=== PATIENT | female | born 1990 | race Caucasian/White ===

== ENCOUNTER 2017-11-24 10:37 | Emergency (ER) | payer OTHER | END 2017-11-24 11:56 | disposition home or self-care (01) | LOC: FTE 10:37 | DX: S80.862A Insect bite (nonvenomous), left lower leg, initial encounter (principal); S80.861A Insect bite (nonvenomous), right lower leg, initial encounter; J45.909 Unspecified asthma, uncomplicated; W57.XXXA Bitten or stung by nonvenomous insect and other nonvenomous arthropods, initial encounter; Y92.9 Unspecified place or not applicable | CPT/HCPCS: 99283; Z7502 ==

== ENCOUNTER 2017-12-02 21:04 | Outpatient (CLI) | payer OTHER ==
[2017-12-02 22:41] LABS: ADD UMIC YES; UR ASCORBIC ACID NEGATIVE (NEGATIVE); UR BILIRUBIN (Dip) NEGATIVE (NEGATIVE); UR BLOOD (Dip) NEGATIVE (NEGATIVE); UR CLARITY SLIGHTLY CLOUDY (CLEAR); UR COLOR AMBER (YELLOW); UR GLUCOSE (Dip) NEGATIVE (NEGATIVE); UR KETONES (Dip) 1+ mg/dL (NEGATIVE); UR LEUKOCYTE ESTERASE (Dip) 3+ Leu/ul (NEGATIVE); UR MUCUS MODERATE /HPF (NONE SEEN); UR NITRITE (Dip) NEGATIVE (NEGATIVE); UR RBC 9 /HPF (0-5); UR SPECIFIC GRAVITY (Dip) 1.032 (1.003-1.030); UR SQUAMOUS EPITHELIAL CELL FEW /HPF (FEW); UR TOTAL PROTEIN (Dip) 1+ mg/dl (NEGATIVE); UR UROBILINOGEN (Dip) 2+ mg/dL (NEGATIVE); UR WBC 32 /HPF (0-5)
[2017-12-02 22:53] LABS: AMPHETAMINE/METHAMPHETAMINE Negative (NEGATIVE); BARBITURATES Negative (NEGATIVE); BENZODIAZEPINES Negative (NEGATIVE); CANNABINOIDS Negative (NEGATIVE); COCAINE Negative (NEGATIVE); OPIATES Negative (NEGATIVE)
== END 2017-12-02 23:23 | disposition home or self-care (01) ==
LOC: OBT 21:04 → L-D 21:05 → OBT 23:23
DX: O23.43 Unspecified infection of urinary tract in pregnancy, third trimester (principal); Z3A.32 32 weeks gestation of pregnancy
CPT/HCPCS: 76817; 76818; 80307; 81001

== ENCOUNTER 2017-12-23 12:58 | Outpatient (CLI) | payer OTHER ==
[2017-12-23 14:28] LABS: RUPTURE FETAL MEMBRANES NEGATIVE (NEGATIVE)
== END 2017-12-23 17:05 | disposition home or self-care (01) ==
LOC: OBT 12:58 → L-D 12:59 → OBT 17:05
DX: O42.013 Preterm premature rupture of membranes, onset of labor within 24 hours of rupture, third trimester (principal); Z3A.36 36 weeks gestation of pregnancy
CPT/HCPCS: 76818; 84112

== ENCOUNTER 2018-01-04 00:25 | Inpatient (IN) | payer OTHER ==
[2018-01-04] MEDS ORDERED: METHYLERGONOVINE 0.2 MG INJ IM ×2 (01:30→02:30)
[2018-01-04] MEDS ORDERED: CARBOPROST 250 MCG INJ IM (01:30)
[2018-01-04] MEDS ORDERED: BUTORPHANOL 2 MG INJ IV (01:30)
[2018-01-04] MEDS ORDERED: OXYTOCIN 30 UNITS/LR 500 ML IV ×3 (01:30→02:30)
[2018-01-04] MEDS ORDERED: IBUPROFEN 600 MG TAB PO (01:30)
[2018-01-04] MEDS ORDERED: LIDOCAINE 1% (MPF) 30 ML INJ INJ (01:30)
[2018-01-04] MEDS ORDERED: MISOPROSTOL 200 MCG TAB PR ×2 (01:30→02:30)
[2018-01-04] MEDS: AMPICILLIN 2 GM/NS (PMX) 100 ML IV (01:58)
[2018-01-04] MEDS: LACTATED RINGER'S 1,000 ML IV* (02:01)
[2018-01-04 02:20] LABS: ADD MAN DIFF? NO
[2018-01-04 02:24] LABS: BASOPHILS % 0.3 % (0.0-2.0); EOSINOPHILS # 0.2 10^3/ul (0.0-0.5); EOSINOPHILS % 2.4 % (0.0-7.0); HEMOGLOBIN 13.6 g/dl (12.0-16.0); LYMPHOCYTES # 2.6 10^3/ul (0.8-2.9); MEAN CORPUSCULAR HGB CONC 31.6 g/dl (32.0-37.0); MEAN CORPUSCULAR VOLUME 88.5 fl (82.0-101.0); MEAN PLATELET VOLUME 12.4 fl (7.4-10.4); MONOCYTE # 0.7 10^3/ul (0.3-0.9); MONOCYTES % 6.9 % (0.0-11.0); NEUTROPHIL # 5.8 10^3/ul (1.6-7.5); NEUTROPHILS % 62.1 % (39.0-77.0); PLATELET COUNT 160 10^3/UL (140-415); RED BLOOD COUNT 4.86 10^6/ul (4.20-5.40); RED CELL DISTRIBUTION WIDTH 12.5 % (11.5-14.5)
[2018-01-04 02:24] LABS: WHITE BLOOD COUNT 9.4 10^3/ul (4.8-10.8)
[2018-01-04] MEDS: OXYTOCIN 30 UNITS/LR 500 ML IV ×3 (02:27→07:11)
[2018-01-04] MEDS ORDERED: SENNA/DOCUSATE NA (8.6MG/50MG) TAB PO (02:30)
[2018-01-04] MEDS ORDERED: HYDROCODONE/APAP (5/325) TAB PO (02:30)
[2018-01-04] MEDS ORDERED: NACL 0.9% 3 ML SYG IV (02:30)
[2018-01-04] MEDS ORDERED: ONDANSETRON 4 MG INJ IV (02:30)
[2018-01-04] MEDS ORDERED: DIBUCAINE 1% 30 GM OINT PR (02:30)
[2018-01-04] MEDS ORDERED: OXYCODONE/ASPIRIN (4.88/325) TAB PO (02:30)
[2018-01-04 02:44] LABS: INR 0.86; PROTIME 11.8 Sec (11.9-14.9); PT RATIO 0.9
[2018-01-04 02:45] LABS: PARTIAL THROMBOPLASTIN TIME 28.9 Sec (25.0-35.0)
[2018-01-04 03:24] LABS: HEPATITIS B SURFACE ANTIGEN NEGATIVE (NEGATIVE)
[2018-01-04] MEDS ORDERED: AMPICILLIN 1 GM/NS (PMX) 50 ML IV (05:30)
[2018-01-04] MEDS: IBUPROFEN 600 MG TAB PO ×3 (06:00→18:00)
[2018-01-04] MEDS: BENZOCAINE 20% 56 ML SPRAY TOP (06:09)
[2018-01-04] MEDS: WITCH HAZEL/GLYCERIN PAD PR (06:09)
[2018-01-04] MEDS: LANOLIN 7 GM TUBE TOP (06:09)
[2018-01-04] MEDS: ACCU-CHEK XX ×4 (07:30→21:00)
[2018-01-04] MEDS: SENNA/DOCUSATE NA (8.6MG/50MG) TAB PO ×2 (09:27→21:00)
[2018-01-04] MEDS: MAGNESIUM HYDROXIDE 30ML CUP PO ×2 (09:27→21:00)
[2018-01-04 16:11] LABS: RAPID PLASMA REAGIN NONREACTIVE (NR)
[2018-01-05] MEDS: IBUPROFEN 600 MG TAB PO ×4 (05:48→17:58)
[2018-01-05] MEDS: ACCU-CHEK XX ×3 (07:41→14:15)
[2018-01-05 08:41] LABS: ADD MAN DIFF? NO
[2018-01-05 08:45] LABS: BASOPHILS % 0.2 % (0.0-2.0); EOSINOPHILS # 0.2 10^3/ul (0.0-0.5); EOSINOPHILS % 2.1 % (0.0-7.0); HEMATOCRIT 37.8 % (37.0-47.0); HEMOGLOBIN 11.8 g/dl (12.0-16.0); LYMPHOCYTES # 2.8 10^3/ul (0.8-2.9); LYMPHOCYTES % 33.7 % (15.0-51.0); MEAN CORPUSCULAR HEMOGLOBIN 27.6 pg (29.0-33.0); MEAN CORPUSCULAR HGB CONC 31.2 g/dl (32.0-37.0); MEAN CORPUSCULAR VOLUME 88.5 fl (82.0-101.0); MEAN PLATELET VOLUME 11.6 fl (7.4-10.4); MONOCYTE # 0.6 10^3/ul (0.3-0.9); NEUTROPHIL # 4.7 10^3/ul (1.6-7.5); NEUTROPHILS % 56.8 % (39.0-77.0); PLATELET COUNT 155 10^3/UL (140-415); RED BLOOD COUNT 4.27 10^6/ul (4.20-5.40); RED CELL DISTRIBUTION WIDTH 13.1 % (11.5-14.5)
[2018-01-05 08:45] LABS: WHITE BLOOD COUNT 8.2 10^3/ul (4.8-10.8)
[2018-01-05] MEDS: SENNA/DOCUSATE NA (8.6MG/50MG) TAB PO ×2 (08:55→21:00)
[2018-01-05] MEDS: MAGNESIUM HYDROXIDE 30ML CUP PO ×2 (08:55→21:00)
[2018-01-06] MEDS: IBUPROFEN 600 MG TAB PO ×3 (06:00→12:00)
[2018-01-06] MEDS: MAGNESIUM HYDROXIDE 30ML CUP PO (09:00)
[2018-01-06] MEDS: SENNA/DOCUSATE NA (8.6MG/50MG) TAB PO (09:00)
== END 2018-01-06 13:15 | disposition home or self-care (01) | DRG 775 ==
LOC: OBT 00:25 → L-D 00:25 → OBT 01:03 → L-D 01:03 → PP1 04:55
PROVIDERS: Obstetrics & Gynecology
PROC: 10E0XZZ Delivery of Products of Conception, External Approach (ICD-10-PCS; principal; 2018-01-04)
PROC: 3E033VJ Introduction of Other Hormone into Peripheral Vein, Percutaneous Approach (ICD-10-PCS; 2018-01-04)
DX: O99.214 Obesity complicating childbirth (principal); Z68.43 Body mass index [BMI] 50.0-59.9, adult; E66.01 Morbid (severe) obesity due to excess calories; Z3A.37 37 weeks gestation of pregnancy; Z37.0 Single live birth
CPT/HCPCS: 82962; 85025; 85610; 85730; 86592; 86850; 86900; 86901; 87340